=== PATIENT | male | born 1930 | race Caucasian/White ===

== ENCOUNTER 2017-01-06 07:48 | Day surgery (SDC) | payer MEDICARE, OTHER ==
[~2017-01-06] VITALS: Ht 182.9 cm; Wt 121.9 kg
[2017-01-06] VITALS (10 sets, daily range): BP systolic 134–156; BP diastolic 66–78; PULSE 48–94; RESP 16–18; TEMP 98–98.6; O2SAT 95–97
[~2017-01-06 07:48] MED LIST: LORTA5 PO; RIVA10 PO; SUPETAB30 PO; Z.0.NO CURRENT MEDS
[2017-01-06] MEDS ORDERED: CHLORHEXIDINE GLUCONATE 2 % 1 PACK (2 CLOTHS) TOP SCH (08:30)
[2017-01-06] MEDS ORDERED: LORazepam 1 MG TAB SL SCH (08:30)
[2017-01-06] MEDS: LACTATED RINGER'S 1000 ML IV SCH (08:30)
[2017-01-06] MEDS ORDERED: VANCOMYCIN 1000 MG/NS 250 ML IV SCH ×2 (08:30)
[2017-01-06] MEDS ORDERED: ceFAZolin 2 GM PREMIX 50 ML IV SCH (08:30)
[2017-01-06] MEDS ORDERED: INSULIN HUMAN REGULAR 1,000 UNITS/10 ML VIAL SQ PRN (08:30)
[2017-01-06] MEDS ORDERED: METOPROLOL TARTRATE 25 MG TAB PO PRN (08:30)
[2017-01-06] MEDS ORDERED: POVIDONE IODINE 5% (ANTISEPSIS KIT) 4 APPLICATIONS EACH NARE SCH (08:30)
[2017-01-06 08:46] LABS: AUTOMATED NEUTROPHIL # 4.6 TH/MM3 (1.8-7.7); BASOPHIL # 0.1 TH/MM3 (0-0.2); BASOPHIL % 0.7 % (0.0-2.0); EOSINOPHIL # 0.3 TH/MM3 (0-0.4); EOSINOPHIL % 4.2 % (0.0-4.0); HEMATOCRIT 45.8 % (39.0-51.0); HEMO FLAGS DIFF FINAL; LYMPH % 25.4 % (9.0-44.0); LYMPHOCYTE # 1.9 TH/MM3 (1.0-4.8); MEAN CELL VOLUME 88.1 FL (80.0-100.0); MEAN CORPUSCULAR HEMOGLOBIN 29.8 PG (27.0-34.0); MEAN CORPUSCULAR HGB CONC 33.9 % (32.0-36.0); MONO % 8.8 % (0.0-8.0); NEUT % 60.9 % (16.0-70.0); PLATELET COUNT 197 TH/MM3 (150-450); RED BLOOD COUNT 5.19 MIL/MM3 (4.50-5.90); RED CELL DISTRIBUTION WIDTH 12.9 % (11.6-17.2); WHITE BLOOD COUNT 7.6 TH/MM3 (4.0-11.0)
[2017-01-06 08:59] LABS: APTT (PATIENT) 26.3 SEC (24.3-30.1); PROTHROMBIN TIME - PATIENT 11.1 SEC (9.8-11.6)
[2017-01-06] MEDS ORDERED: MUPIROCIN 2% OINT 1 APPLIC/GM SYR NASAL SCH (09:00)
[2017-01-06] MEDS: NS 1000 ML IV SCH (09:00)
[2017-01-06] MEDS ORDERED: SODIUM CHLORID 0.9% 500 ML IV SCH (09:00)
[2017-01-06 09:12] LABS: BICARBONATE 28.1 MEQ/L (21.0-32.0); POTASSIUM 4.1 MEQ/L (3.5-5.1)
[2017-01-06] MEDS ORDERED: VANCOMYCIN 500 MG VIAL ONE (09:33)
[2017-01-06] MEDS ORDERED: LIDOCAINE HCL 2% 50 ML VIAL ONE (09:34)
[2017-01-06] MEDS ORDERED: MIDAZOLAM HCL 2 MG/2 ML VIAL ONE (09:42)
[2017-01-06] MEDS ORDERED: ONDANSETRON HCL 4 MG/2 ML VIAL IV PRN (10:30)
[2017-01-06] MEDS ORDERED: SODIUM CHLORIDE 0.9% FLUSH 5 ML FLUSH IVF PRN (10:30)
[2017-01-06] MEDS ORDERED: ACETAMINOPHEN/CODEINE 300 MG/30 MG TAB PO PRN (10:30)
[2017-01-06] MEDS ORDERED: PROPOFOL 200 MG/20 ML AMP IV ONE (10:30)
[2017-01-06] MEDS ORDERED: DO NOT ADM ANY ANTICOAGULANT DRUGS XX PRN (10:50)
--- NOTE | 2017-01-06 12:17 | RADRPT ---
EXAM DATE/TIME: 01/06/2017 11:30 [place] COMPARISON: No previous studies available for comparison. INDICATIONS : SP pacer. MEDICAL HISTORY : None. SURGICAL HISTORY : Pacemaker. ENCOUNTER: Initial ACUITY: 1 day PAIN SCORE: 8/10 LOCATION: Bilateral chest FINDINGS: A single view of the chest demonstrates the lungs to be hypoinflated but clear. There are no effusion s. Heart size is borderline prominent a well compensated with some calcification of the mitral valve annulus. Right subclavian bipolar pacer is radiographically intact. Osseous structures are intact xu e degenerative spurring of the dorsal spine. CONCLUSION: 1. Hypoinflation with no acute cardiopulmonary process. 2. Borderline, well compensated heart. Sergio Tang MD on January 06, 2017 at 12:14 Board Certified Radiologist. This report was verified electronically.
[2017-01-06] MEDS: ceFAZolin 2 GM PREMIX 50 ML IV SCH (17:38)
[2017-01-06] MEDS: SODIUM CHLORIDE 0.9% FLUSH 5 ML FLUSH IVF SCH (21:06)
[2017-01-07] VITALS (10 sets, daily range): BP systolic 163–164; BP diastolic 88–95; PULSE 49–68; RESP 16–18; TEMP 97.8–98.1; O2SAT 94–97
[2017-01-07] MEDS: ceFAZolin 2 GM PREMIX 50 ML IV SCH ×2 (01:00→08:00)
[2017-01-07] MEDS: LACTATED RINGER'S 1000 ML IV SCH (08:00)
[2017-01-07] MEDS: SODIUM CHLORIDE 0.9% FLUSH 5 ML FLUSH IVF SCH (08:00)
[2017-01-07] MEDS: NS 1000 ML IV SCH (08:30)
--- NOTE | 2017-01-07 09:06 | HHI.PR ---
Subjective Remarks Feeling ok Objective Vital Signs Date Time Temp Pulse Resp B/P Pulse Ox O2 Delivery O2 Flow Rate FiO2 01/07/17 08:25 97.8 61 18 163/95 94 01/07/17 08:25 58 01/07/17 06:00 50 01/07/17 05:04 60 01/07/17 04:08 49 01/07/17 03:40 98.1 57 16 164/88 97 01/07/17 03:05 49 01/07/17 02:35 49 01/07/17 01:00 50 01/07/17 00:35 49 01/06/17 23:03 50 01/06/17 23:03 98.2 51 16 134/66 95 01/06/17 22:00 49 01/06/17 21:00 50 01/06/17 20:00 64 01/06/17 19:30 98.6 66 16 156/68 95 01/06/17 19:00 62 01/06/17 17:00 52 01/06/17 16:00 48 01/06/17 15:00 60 01/06/17 15:00 98.0 59 18 151/76 96 01/06/17 14:02 98.0 60 18 148/78 97 01/06/17 11:38 Room Air I/O 01/06/17 01/06/17 01/06/17 01/07/17 01/07/17 01/07/17 07:00 15:00 23:00 07:00 15:00 23:00 Intake Total 480 ml 290 ml Balance 480 ml 290 ml Intake Oral 480 ml 240 ml IV Total 50 ml # Voids 1 2 Result Diagram: 01/06/17 0831 01/06/17 0831 Imaging Alert, fully oriented Lungs: ventilated Heart: S1, S2 regular Right infraclavicular area with clean surgical wound Abdomen: soft, no mass Ext: no edema Last Impressions Chest X-Ray 01/06/17 0000 Signed Impressions: Service Date/Time: Friday, January 06, 2017 11:30 - CONCLUSION: 1. Hypoinflation with no acute cardiopulmonary process. 2. Borderline, well compensated heart. Sergio Tang MD Current Medications Medications (Trade) Dose Ordered Sig/Daisy Route Start Time Stop Time Status Last Admin Lactated Ringer's 1,000 ml @ 30 mls/hr Q24H IV 01/06/17 09:00 01/06/17 08:30 Sodium Chloride 500 ml @ 30 mls/hr [id number] IV 01/06/17 09:00 01/07/17 08:59 Sodium Chloride 1,000 ml @ 30 mls/hr Q24H IV 01/06/17 09:00 (Ancef 2 Gm Premix) 50 ml @ 100 mls/hr Q8H IV 01/06/17 17:00 01/07/17 09:29 01/07/17 08:00 (Zofran Inj) 4 mg Q4H PRN IV 01/06/17 10:30 (Tylenol-Codeine #3) 1 tab Q4H PRN PO 01/06/17 10:30 (NS Flush) 2 ml BID IVF 01/06/17 21:00 01/07/17 08:00 (NS Flush) 2 ml UNSCH PRN IVF 01/06/17 10:30 Miscellaneous Information ALL NURSING DEPARTME... UNSCH PRN XX 01/06/17 10:50 01/07/17 10:49 Assessment and Plan Problem List: (1) Bradycardia Status: Acute Plan: A pacing V sensing. HR in the 60s . Doing well (2) Pacemaker Status: Acute Plan: SP RV lead replacement. Clean surgical wound Device well functioning will be DH Follow up as scheduled Marci Grant MD Jan 07, 2017 09:06
[2017-01-07] MEDS ORDERED: CEPH-460 PO (09:09)
[2017-01-07] MEDS ORDERED: ACET300T2 PO (09:09)
--- NOTE | 2017-01-07 10:00 | EKG ---
Date Performed: 01/07/2017 Time Performed: 07:17:48 PTAGE: 86 years EKG: ELECTRONIC ATRIAL PACEMAKER RIGHT BUNDLE BRANCH BLOCK LEFT ANTERIOR FASCICULAR BLOCK POSSIB LE SEPTAL MYOCARDIAL INFARCTION , PROBABLY OLD ABNORMAL ECG PREVIOUS TRACING : 01/06/2017 13.47 DOCTOR: Flavio Moreno Interpretating Date/Time 01/07/2017 09:57:54
--- NOTE | 2017-01-07 10:22 | EKG ---
Date Performed: 01/06/2017 Time Performed: 13:47:38 PTAGE: 86 years EKG: Sinus rhythm with 1st degree A-V block Left axis deviation RBBB with left anterior fascicular block Lateral T wav e changes are nonspecific Low QRS voltages in precordial leads Abnormal ECG PREVIOUS TRACING : 01/06/2017 08.39 DOCTOR: Flavio Moreno Interpretating Date/Time 01/07/2017 10:19:32
--- NOTE | 2017-01-07 10:24 | MP ---
cc: EDSON FORD M.D. DATE OF SURGERY 01/06/2017 PROCEDURE Permanent pacemaker removal and replacement. New RV lead insertion. INDICATION Mr. Nolasco is an 86-year-old gentleman, previous pacemaker implanted in 2002. The gentleman has a increased impedance in the right ventricular lead. The impedance was over 2000. There was poor capture. The patient is atrial pacing dependent. The patient was admitted for new lead insertion. The risks, the nature and the benefit of the procedure are clearly stated to him. The risks include pneumothorax, cardiac perforation, stroke, need for open heart surgery and even . The patient understood and agreed to proceed. PROCEDURE DETAILS After written informed consent was obtained, the patient was brought to the EP lab where he was prepped and draped in the usual sterile fashion. Conscious sedation was initiated and maintained throughout the procedure by anesthesiologist. Once sedation verified, the right infraclavicular area was anesthetized with 2% Xylocaine. Using #11 blade scalpel, a 3-cm incision was made over the existing generator. Dissection was then taken down to the deep fascial layer using Bovie cautery and blunt dissection. Once exposed, the generator was removed from the pocket. Scar tissue was removed around the lead, pocket was expanded. Pocket revision was performed. Then using modified Seldinger technique, the left subclavian vein was cannulated on one occasion and one guidewire was advanced. A 2-0 Vicryl suture placed around the wire to prevent back bleeding. At this point over the wire a 7-Serbian dilator and introducer was advanced. As the dilator and wire were removed, an active fixation right ventricular pacing sensing lead was advanced. After adequate pacing and threshold was obtained, the lead was secured in the pocket using a #2 Ethibond suture. Then the pocket was copiously irrigated using antibiotic solution. The existing RV lead was disconnected from the generator, capped and left in the pocket. And the new RV pacing sensing lead was connected to the generator and placed into the pocket. I did proceed with wound closure. The deep fascial layer was approximated using 2-0 Vicryl suture in a continuous fashion. The layer was approximated using 2-0 Vicryl suture in a continuous fashion. The subcuticular layer was approximated using #2-0 Vicryl suture in a continuous fashion. Dermabond adhesive was applied to the wound followed by sterile pressure dressing. There were no complications. The patient tolerated the procedure. Blood loss minimal. IMPRESSION Implanted right ventricle pacing sensing lead using Wavesat model number 4076-58, serial number [id number]. Threshold. The right ventricle pacing bipolar mode was 1.5 volts at 0.4 milliseconds. Lead impedance is 1209 ohms. R-wave at 9.7 mV. Settings. The device set in the AAIR 50 with to DDDR 50 upper limits 130 beats per minute. Mode switch is on. CONCLUSION Successful pacemaker removal and replacement. Successful new right ventricular pacing sensing lead insertion, COMMENT AND RECOMMENDATIONS The patient going to be transferred to the telemetry unit. He will be observed, with stable he will be discharged home. MD EBONY Bennett/GUSTAVO /10:23 AM /10:13 AM
--- NOTE | 2017-01-07 10:39 | EKG ---
Date Performed: 01/06/2017 Time Performed: 08:39:28 PTAGE: 86 years EKG: Atrial pacing Left axis deviation RBBB with left anterior fascicular block Inferior T wave changes are nonspecific Low QRS voltages in precordial leads Abnormal ECG PREVIOUS TRACING : 08/20/2010 12.46 DOCTOR: Flavio Moreno Interpretating Date/Time 01/07/2017 10:38:19
== END 2017-01-07 09:43 | disposition home or self-care (01) ==
LOC: HDOC 07:48 → HDIC 07:49 → HCIN 14:02 → HDOC 01-07 09:43
PROVIDERS: ATTEND Internal Medicine Interventional Cardiology
DX: T82.190A Other mechanical complication of cardiac electrode, initial encounter (principal); I45.2 Bifascicular block; I48.92 Unspecified atrial flutter; I47.2 Ventricular tachycardia; I25.10 Atherosclerotic heart disease of native coronary artery without angina pectoris; I10 Essential (primary) hypertension; E83.51 Hypocalcemia
CPT/HCPCS: 33216; 71010; 80048; 85025; 85610; 85730; 86850; 86900; 86901; 93005; C1898; J0690; J2250; J3010; J3370; J7050; J7120